=== PATIENT | male | born 1985 | race Caucasian/White ===

== ENCOUNTER 2022-01-27 15:01 | Emergency (ER) | payer OTHER ==
[~2022-01-27] VITALS: Ht 167.6 cm; Wt 77.1 kg
--- NOTE | 2022-01-27 15:45 | NUR ---
bib self c/o epigastric area pain x 5 days. denies any recent etoh intake. AMBULATORY, PLACED ON BED, AAOX4, BREATHING EVEN AND UNLABORED, SATURATING AT 98%RA
--- NOTE | 2022-01-27 16:00 | NUR ---
BLOOD DRAWN AND SENT TO LAB
[2022-01-27] MEDS ORDERED: DIATR MEGLU/DIATRIZOATE SODIUM 30 ML BOTTLE (GASTROGRAPHIN) ONE (16:25)
[2022-01-27] MEDS ORDERED: IV NS 0.9% 250 ML IV ONE (16:25)
[2022-01-27] MEDS ORDERED: CT SWABBABLE VALVE TRANS SET 1 EA INFUS.SET MC ONE (16:25)
[2022-01-27] MEDS ORDERED: IOHEXOL-300 100 ML VIAL IV ONE (16:25)
[2022-01-27] MEDS ORDERED: LORAZEPAM INJ 2 MG/ML VIAL IV ONE (16:30)
[2022-01-27] MEDS ORDERED: PANTOPRAZOLE 40 MG VIAL IV ONE (16:30)
[2022-01-27] MEDS ORDERED: ONDANSETRON HCL/PF 4 MG/2 ML VIAL IVP ONE (16:30)
[2022-01-27] MEDS ORDERED: IV NS 0.9% 1,000 ML BAG IV ONE (16:30)
[2022-01-27] MEDS ORDERED: PIPERACILLIN /TAZOBACTAM 3.375 G in IV D5W 50 ML IV ONE (16:30)
--- NOTE | 2022-01-27 16:30 | NUR ---
PATIENT TAKEN TO CT VIA [facility]
[2022-01-27 16:37] LABS: BASOPHILS % (AUTO) 0.2 % (0.0-2.0); EOSINOPHILS % (AUTO) 0.2 % (0.0-6.0); HEMATOCRIT 38 % (39-51); HEMOGLOBIN 12.9 g/dL (13.5-17.5); LYMPHOCYTES # (AUTO) 0.7 K/uL (0.8-4.8); LYMPHOCYTES % (AUTO) 7.5 % (20.0-44.0); MEAN CORPUSCULAR HGB CONC 34 g/dl (31.0-36.0); MEAN CORPUSCULAR VOLUME 103 fL (80-96); MONOCYTES # (AUTO) 1.4 K/uL (0.1-1.30); MONOCYTES % (AUTO) 13.7 % (2.0-12.0); NEUTROPHILS # (AUTO) 7.8 K/uL (1.8-8.9); NEUTROPHILS % (AUTO) 78.4 % (43.0-81.0); PLATELET COUNT (AUTO) 93 K/uL (150-450); RED BLOOD CELL COUNT(AUTO) 3.68 MIL/uL (4.5-6.0)
[2022-01-27] MEDS ORDERED: ONDANSETRON HCL/PF 4 MG/2 ML VIAL ONE (16:43)
[2022-01-27] MEDS ORDERED: PANTOPRAZOLE 40 MG VIAL ONE (16:43)
[2022-01-27] MEDS ORDERED: LORAZEPAM INJ 2 MG/ML VIAL ONE (16:44)
[2022-01-27 17:29] LABS: ALBUMIN 4.1 g/dL (3.4-5.0); BILIRUBIN,DIRECT 0.6 mg/dL (0.0-0.2); BILIRUBIN,TOTAL 2.1 mg/dL (0.2-1.0); CALCIUM, SERUM 9.6 mg/dL (8.5-10.1); CREATININE 1.2 mg/dL (0.6-1.3); POTASSIUM 3.5 mmol/L (3.5-5.1); TOTAL PROTEIN, SERUM 8.1 g/dL (6.4-8.2)
--- NOTE | 2022-01-27 18:07 | NUR ---
SWAB FOR COVID19 SENT TO LAB
--- NOTE | 2022-01-27 18:53 | NUR ---
CALLED [facility] [phone] PER TERA CO-ORDINATOR 16 AT [facility] NOT ACCEPTING HIGHER LEVEL OF CARE TRANSFERS AT THIS TIME.
--- NOTE | 2022-01-27 18:56 | NUR ---
[facility] [phone] THAD. NEED TO DO PEER TO PEER WILL HAVE TO CALL [facility]
--- NOTE | 2022-01-27 18:59 | NUR ---
[facility] [phone] AT [facility] WITH BED AT THIS TIME.
--- NOTE | 2022-01-27 19:02 | NUR ---
[facility] [phone] AT [facility] WILL TAKE INFO
--- NOTE | 2022-01-27 21:33 | NUR ---
CALL FROM [facility] INTERNAL RECRUITER, [facility] UNABLE TO ACCEPT PT.
--- NOTE | 2022-01-27 21:47 | NUR ---
[facility] TRANSFER CENTER CALLED FOR HIGHER LEVEL OF CARE. [facility] FAXED.
--- NOTE | 2022-01-28 01:06 | NUR ---
CLINICALS REFAXED TO [facility]
[2022-01-28] MEDS ORDERED: LORAZEPAM INJ 2 MG/ML VIAL ONE ×2 (01:28→10:05)
[2022-01-28] MEDS ORDERED: IV NS 0.9% 1,000 ML BAG IV ONE (04:30)
--- NOTE | 2022-01-28 08:20 | NUR ---
[facility] TRANSF[facility]: CLINICALS UNDER REVIEW, REQUESTED PCR COVID TEST.
--- NOTE | 2022-01-28 08:32 | NUR ---
COVID PCR SWAB DONE AND SENT TO LAB
--- NOTE | 2022-01-28 08:36 | NUR ---
PATIENT RESTING IN BED, AAOX4, BREATHING EVEN AND NON LABORED
[2022-01-28] MEDS ORDERED: LORAZEPAM INJ 2 MG/ML VIAL IV ONE ×2 (10:00)
--- NOTE | 2022-01-28 10:28 | NUR ---
PRESENTED CASE TO [facility] FOR HIGHER LEVEL OF CARE TRANSFER REQUIRING CT SURGERY. WILL CALL BACK. REQUESTED CT BE FAXED TO [phone]
--- NOTE | 2022-01-28 10:44 | NUR ---
[facility] CALLED, THEY ARE AT [facility]. UNABLE TO ACCEPT THE PATIENT FOR TRANSFER.
--- NOTE | 2022-01-28 13:00 | NUR ---
CALL FROM DR MIGUEL MADDEN,THORACIC SURGEON AT [facility], , DR DOMÍNGUEZ AWARE BUT UNABLE TO COME TO THE PHONE.
--- NOTE | 2022-01-28 13:24 | NUR ---
Patient does not wish to proceed with medical care recommended by Dr. Augustine. Patient given information related to possible complications, up to and including , which could occur as a result of leaving the hospital at this time. Patient verbalizes understanding of risks involved due to leaving against medical advice. Patient has signed AMA form.
[2022-01-28 13:25] VITALS: BP 146/78
== END 2022-01-28 13:25 | disposition left against medical advice (07) ==
LOC: ER 15:03
DX: K22.3 Perforation of esophagus (principal); F10.239 Alcohol dependence with withdrawal, unspecified; Z20.822 Contact with and (suspected) exposure to COVID-19; Z53.29 Procedure and treatment not carried out because of patient's decision for other reasons; J98.2 Interstitial emphysema; R91.8 Other nonspecific abnormal finding of lung field; K76.0 Fatty (change of) liver, not elsewhere classified
CPT/HCPCS: 99285; 71260; 96365; 96375; 87426; 93005; 74176; 85025; 80048; 87040 ×2; 83605; 83690; 80076; 36415; 85730; 96361; 96376; J2060 ×3; J2405; J2543; J7060; J7030 ×2; J7050; J7040; C9113; Q9963; C9803; Q9967; U0003

== ENCOUNTER 2024-04-06 13:30 | Emergency (ER) | payer OTHER ==
[~2024-04-06] VITALS: Ht 165.1 cm; Wt 78.0 kg
[2024-04-06] MEDS ORDERED: LORAZEPAM INJ 2 MG/ML VIAL ONE (14:14)
[2024-04-06] MEDS ORDERED: ONDANSETRON HCL/PF 4 MG/2 ML VIAL ONE (14:14)
[2024-04-06] MEDS: LORAZEPAM INJ 2 MG/ML VIAL IV ONE (14:30)
[2024-04-06] MEDS: IV NS 0.9% 1,000 ML BAG IV ONE (14:30)
[2024-04-06] MEDS: ONDANSETRON HCL/PF 4 MG/2 ML VIAL IVP ONE (14:30)
[2024-04-06 14:34] LABS: CALCIUM, SERUM 9.7 mg/dL (8.5-10.1); CARBON DIOXIDE 27 mmol/L (21-32); CHLORIDE 87 mmol/L (98-107); CREATININE 1.3 mg/dL (0.6-1.3); GLUCOSE 113 mg/dL (74-106); POTASSIUM 3.8 mmol/L (3.5-5.1); SODIUM SERUM 134 mmol/L (136-145); UREA NITROGEN, BLOOD 16 mg/dL (7-18)
[2024-04-06 14:35] LABS: SERUM AMMONIA 24 umol/L (11-32)
[2024-04-06 14:40] LABS: ALANINE AMINOTRANSFERASE 75 U/L (12-78); ALBUMIN 4.8 g/dL (3.4-5.0); ALCOHOL, BLOOD < 3 mg/dL (0-10); ALKALINE PHOSPHATASE 81 U/L (46-116); ASPARTATE AMINOTRANSFERASE 94 U/L (15-37); BILIRUBIN,DIRECT 1.3 mg/dL (0.0-0.2); BILIRUBIN,TOTAL 4.7 mg/dL (0.2-1.0); TOTAL PROTEIN, SERUM 8.8 g/dL (6.4-8.2)
[2024-04-06 14:45] LABS: INR 1.25 (0.91-1.10); PARTIAL THROMBOPLASTIN TIME 25.5 SEC (24.3-34.3); PROTHROMBIN TIME 13.1 SECS (9.2-11.1)
[2024-04-06 15:05] LABS: BASOPHILS % (AUTO) 0.2 % (0.0-2.0); HEMATOCRIT 41 % (39-51); HEMOGLOBIN 14.4 g/dL (13.5-17.5); LYMPHOCYTES # (AUTO) 0.3 K/uL (0.8-4.8); LYMPHOCYTES % (AUTO) 4.9 % (20.0-44.0); MEAN CORPUSCULAR HEMOGLOBIN 36 PG (26.0-33.0); MEAN CORPUSCULAR HGB CONC 35 g/dl (31.0-36.0); MEAN CORPUSCULAR VOLUME 103 fL (80-96); MONOCYTES # (AUTO) 0.8 K/uL (0.1-1.30); MONOCYTES % (AUTO) 10.8 % (2.0-12.0); NEUTROPHILS % (AUTO) 84.1 % (43.0-81.0); RED BLOOD CELL COUNT(AUTO) 3.97 MIL/uL (4.5-6.0); RED CELL DISTRIBUTION WIDTH 13.8 % (11.5-15.0); WHITE BLOOD COUNT (AUTO) 7.1 K/uL (4.3-11.0)
[2024-04-06] MEDS ORDERED: CHLO25CA22 PO (15:11)
[2024-04-06 15:24] LABS: PLATELET COUNT (AUTO) 35 K/uL (150-450)
[2024-04-06 16:19] VITALS: BP 136/76; TEMP 98.3; O2SAT 97
[2024-04-06 16:25] LABS: LYMPHOCYTES % (MANUAL) 5 % (16-48); NEUTROPHILS % (MANUAL) 85 (42-76)
[2024-04-06 16:26] LABS: MONOCYTES % (MANUAL) 10 % (0-11.0); PLATELET ESTIMATE DECREASED
== END 2024-04-06 16:19 | disposition home or self-care (01) ==
LOC: ER 13:36
DX: S09.8XXA Other specified injuries of head, initial encounter (principal); F10.239 Alcohol dependence with withdrawal, unspecified; K70.9 Alcoholic liver disease, unspecified; E87.1 Hypo-osmolality and hyponatremia; R25.1 Tremor, unspecified; R41.82 Altered mental status, unspecified; W01.0XXA Fall on same level from slipping, tripping and stumbling without subsequent striking against object, initial encounter; Y93.89 Activity, other specified; Y92.89 Other specified places as the place of occurrence of the external cause; Y99.8 Other external cause status
CPT/HCPCS: 99285; 96374; 96361; 96375; 93005; 70450; 82140; 85025; 80048; 80076; 85007; 36415; 85730; 80320; J2060; J2405; J7030; G0480

== ENCOUNTER 2024-04-26 13:27 | Emergency (ER) | payer OTHER ==
[~2024-04-26] VITALS: Ht 165.1 cm; Wt 77.1 kg
[~2024-04-26 13:27] MED LIST: CHLO25CA22 PO
[2024-04-26] MEDS ORDERED: ONDANSETRON HCL/PF 4 MG/2 ML VIAL ONE (14:09)
[2024-04-26] MEDS ORDERED: predniSONE 20 MG TABLET ONE (14:09)
[2024-04-26] MEDS: predniSONE 20 MG TABLET PO ONE (14:22)
[2024-04-26] MEDS: IV NS 0.9% 1,000 ML BAG IV ONE (14:22)
[2024-04-26] MEDS: ONDANSETRON HCL/PF 4 MG/2 ML VIAL IVP ONE (14:22)
[2024-04-26] MEDS: IPRATROPIUM NEB FS 0.5 MG/2.5 ML AMPUL.NEB NEB ONE (14:45)
[2024-04-26] MEDS: ALBUTEROL FS 2.5 MG/3 ML VIAL.NEB NEB ONE (14:45)
[2024-04-26] MEDS ORDERED: ALBUTEROL FS 2.5 MG/3 ML VIAL.NEB ONE (14:46)
[2024-04-26] MEDS ORDERED: IPRATROPIUM NEB FS 0.5 MG/2.5 ML AMPUL.NEB ONE (14:47)
[2024-04-26 14:50] VITALS: O2SAT 98
[2024-04-26 15:00] VITALS: O2SAT 100
[2024-04-26 15:11] LABS: BASOPHILS % (AUTO) 0.1 % (0.0-2.0); EOSINOPHILS % (AUTO) 0.1 % (0.0-6.0); HEMATOCRIT 44 % (39-51); HEMOGLOBIN 15.7 g/dL (13.5-17.5); LYMPHOCYTES # (AUTO) 0.8 K/uL (0.8-4.8); LYMPHOCYTES % (AUTO) 16.1 % (20.0-44.0); MEAN CORPUSCULAR HEMOGLOBIN 36 PG (26.0-33.0); MEAN CORPUSCULAR HGB CONC 35 g/dl (31.0-36.0); MEAN CORPUSCULAR VOLUME 101 fL (80-96); MONOCYTES # (AUTO) 0.9 K/uL (0.1-1.30); MONOCYTES % (AUTO) 16.5 % (2.0-12.0); NEUTROPHILS # (AUTO) 3.5 K/uL (1.8-8.9); NEUTROPHILS % (AUTO) 67.2 % (43.0-81.0); RED CELL DISTRIBUTION WIDTH 13.6 % (11.5-15.0); WHITE BLOOD COUNT (AUTO) 5.2 K/uL (4.3-11.0)
[2024-04-26 15:13] LABS: PLATELET COUNT (AUTO) 48 K/uL (150-450)
[2024-04-26] MEDS ORDERED: PRED50TA PO (15:13)
[2024-04-26] MEDS ORDERED: ALBU18HF2 INH (15:13)
[2024-04-26] MEDS ORDERED: ONDA4TAB5 PO (15:13)
[2024-04-26 15:29] LABS: CALCIUM, SERUM 10.8 mg/dL (8.5-10.1); CREATININE 1.5 mg/dL (0.6-1.3); POTASSIUM 3.5 mmol/L (3.5-5.1)
[2024-04-26 16:14] LABS: BASOPHILS % (MANUAL) 0 % (0.0-2.0); EOSINOPHILS % (MANUAL) 0 % (0-4); LYMPHOCYTES % (MANUAL) 19 % (16-48); MONOCYTES % (MANUAL) 13 % (0-11.0); NEUTROPHILS % (MANUAL) 68 (42-76); PLATELET ESTIMATE DECREASED
[2024-04-26 16:47] VITALS: BP 125/70; TEMP 98.3; O2SAT 99
== END 2024-04-26 16:49 | disposition home or self-care (01) ==
LOC: ER 13:34
DX: R05.9 Cough, unspecified (principal); R11.2 Nausea with vomiting, unspecified; R06.2 Wheezing; Z79.52 Long term (current) use of systemic steroids
CPT/HCPCS: 99284; 96374; 71045; 96361; 85025; 80048; 36415; 94640; 85007; J7512; J2405; J7030

== ENCOUNTER 2024-09-04 12:53 | Inpatient (IN) | payer OTHER ==
[~2024-09-04] VITALS: Ht 198.1 cm; Wt 75.9 kg
[~2024-09-04 12:53] MED LIST changes: +ALBU18HF2 INH; +ONDA4TAB5 PO; +PRED50TA PO
[2024-09-04 14:54] LABS: BASOPHILS % (AUTO) 0.4 % (0.0-2.0); EOSINOPHILS % (AUTO) 0.2 % (0.0-6.0); HEMATOCRIT 39 % (39-51); HEMOGLOBIN 14.2 g/dL (13.5-17.5); LYMPHOCYTES # (AUTO) 0.8 K/uL (0.8-4.8); MEAN CORPUSCULAR HEMOGLOBIN 37 PG (26.0-33.0); MEAN CORPUSCULAR HGB CONC 36 g/dl (31.0-36.0); MEAN CORPUSCULAR VOLUME 103 fL (80-96); MONOCYTES # (AUTO) 1.4 K/uL (0.1-1.30); MONOCYTES % (AUTO) 17.1 % (2.0-12.0); NEUTROPHILS # (AUTO) 5.8 K/uL (1.8-8.9); NEUTROPHILS % (AUTO) 72.3 % (43.0-81.0); RED BLOOD CELL COUNT(AUTO) 3.83 MIL/uL (4.5-6.0); RED CELL DISTRIBUTION WIDTH 14.1 % (11.5-15.0)
[2024-09-04 15:00] LABS: PLATELET COUNT (AUTO) 28 K/uL (150-450)
[2024-09-04] MEDS ORDERED: HALOPERIDOL LACTATE INJ 5 MG/ML VIAL ONE (15:08)
[2024-09-04 15:10] LABS: CALCIUM, SERUM 10.4 mg/dL (8.5-10.1); CREATININE 1.2 mg/dL (0.6-1.3); POTASSIUM 2.9 mmol/L (3.5-5.1)
[2024-09-04 15:18] LABS: ALBUMIN 4.7 g/dL (3.4-5.0); BILIRUBIN,DIRECT 1.1 mg/dL (0.0-0.2); BILIRUBIN,TOTAL 3.1 mg/dL (0.2-1.0); EOSINOPHILS % (MANUAL) 1 % (0-4); LYMPHOCYTES % (MANUAL) 13 % (16-48); MONOCYTES % (MANUAL) 11 % (0-11.0); NEUTROPHILS % (MANUAL) 75 (42-76); PLATELET ESTIMATE DECREASED; TOTAL PROTEIN, SERUM 8.5 g/dL (6.4-8.2)
[2024-09-04 15:20] LABS: STOMATOCYTES 2+
[2024-09-04] MEDS: HALOPERIDOL LACTATE INJ 5 MG/ML VIAL IV ONE (15:21)
[2024-09-04] MEDS: IV NS 0.9% 1,000 ML BAG IV ONE (15:22)
[2024-09-04] MEDS ORDERED: LORAZEPAM INJ 2 MG/ML VIAL ONE ×2 (15:31→17:09)
[2024-09-04] MEDS: LORAZEPAM INJ 2 MG/ML VIAL IV ONE ×3 (15:36→17:21)
[2024-09-04] MEDS: LORAZEPAM 4 MG/ML VIAL IV ONE (15:37)
[2024-09-04] MEDS: ONDANSETRON HCL/PF 4 MG/2 ML VIAL IV ONE (15:41)
[2024-09-04] MEDS: POTASSIUM CL. PREMIX PERIPHER. 50 ML IV SCH (16:13)
[2024-09-04 16:28] LABS: ACETAMINOPHEN 0 ug/ml (10-30); SALICYLATE < 0.2 mg/dL (2.8-20.0)
[2024-09-04 16:29] LABS: ALCOHOL, BLOOD < 3 mg/dL (0-10)
[2024-09-04 17:46] LABS: AMPHETAMINE, URINE NEGATIVE (NEGATIVE); BARBITURATE, URINE NEGATIVE (NEGATIVE); BENZODIAZEPINE, URINE NEGATIVE (NEGATIVE); CANNABINOID, URINE POSITIVE (NEGATIVE); COCCAINE, URINE NEGATIVE (NEGATIVE); OPIATE, URINE NEGATIVE (NEGATIVE); PHENCYCLIDINE SCREEN,URINE NEGATIVE (NEGATIVE)
[2024-09-04] MEDS ORDERED: POTASSIUM CL. PREMIX PERIPHER. 50 ML ONE ×2 (18:39→19:38)
[2024-09-04] MEDS ORDERED: ONDANSETRON HCL/PF 4 MG/2 ML VIAL IVP PRN (21:30)
[2024-09-04] MEDS ORDERED: MAG HYDROX/AL HYDROX/SIMETH 30 ML UDC PO PRN (21:30)
[2024-09-04] MEDS ORDERED: IV NS 0.9% 1,000 ML IV PRN (21:30)
[2024-09-04] MEDS ORDERED: LORAZEPAM INJ 2 MG/ML VIAL IV PRN (21:30)
[2024-09-04] MEDS ORDERED: MAGNESIUM HYDROXIDE 30 ML UDC PO PRN (21:30)
[2024-09-04] MEDS ORDERED: ACETAMINOPHEN 325 MG TABLET PO PRN (21:30)
[2024-09-04] MEDS ORDERED: Z GUARD REMEDY 4 OZ OINT TP PRN (21:30)
[2024-09-04] MEDS ORDERED: Thiamine 100 MG/ML VIAL ONE (23:00)
[2024-09-04] MEDS: Thiamine 100 MG in IV D5W 50 ML IV SCH (23:13)
[2024-09-04] MEDS: LIDOCAINE VISCOUS 2% UD 15 ML UDC MM ONE (23:14)
[2024-09-05] VITALS: BP 138/95; TEMP 99.1; O2SAT 100
[2024-09-05 04:00] VITALS: BP 134/98; TEMP 97.5; O2SAT 99
[2024-09-05] MEDS: METOCLOPRAMIDE HCL 10 MG/2 ML VIAL IV SCH (04:26)
[2024-09-05 08:00] VITALS: BP 143/97; TEMP 98.6; O2SAT 98
[2024-09-05 08:05] LABS: ALBUMIN 4.2 g/dL (3.4-5.0); BILIRUBIN,TOTAL 3.1 mg/dL (0.2-1.0); CALCIUM, SERUM 9.4 mg/dL (8.5-10.1); CREATININE 0.9 mg/dL (0.6-1.3); MAGNESIUM 1.7 mg/dL (1.8-2.4); PHOSPHORUS 2.5 mg/dL (2.5-4.9); POTASSIUM 2.9 mmol/L (3.5-5.1)
[2024-09-05] MEDS: PANTOPRAZOLE 40 MG VIAL IV SCH (08:31)
[2024-09-05] MEDS: CHLORDIAZEPOXIDE HCL 25 MG CAPSULE PO SCH (08:31)
[2024-09-05 08:42] LABS: BASOPHILS % (AUTO) 0.1 % (0.0-2.0); HEMATOCRIT 42 % (39-51); HEMOGLOBIN 14.9 g/dL (13.5-17.5); LYMPHOCYTES # (AUTO) 0.9 K/uL (0.8-4.8); LYMPHOCYTES % (AUTO) 8.6 % (20.0-44.0); MEAN CORPUSCULAR HEMOGLOBIN 38 PG (26.0-33.0); MEAN CORPUSCULAR HGB CONC 36 g/dl (31.0-36.0); MEAN CORPUSCULAR VOLUME 106 fL (80-96); MONOCYTES # (AUTO) 1.7 K/uL (0.1-1.30); MONOCYTES % (AUTO) 16.5 % (2.0-12.0); NEUTROPHILS # (AUTO) 7.9 K/uL (1.8-8.9); NEUTROPHILS % (AUTO) 74.8 % (43.0-81.0); RED BLOOD CELL COUNT(AUTO) 3.96 MIL/uL (4.5-6.0); RED CELL DISTRIBUTION WIDTH 14.7 % (11.5-15.0); WHITE BLOOD COUNT (AUTO) 10.6 K/uL (4.3-11.0)
[2024-09-05 08:52] LABS: PLATELET COUNT (AUTO) 24 K/uL (150-450)
[2024-09-05] MEDS: MAGNESIUM OXIDE 400 MG TABLET PO ONE (09:16)
[2024-09-05] MEDS: POTASSIUM CHLORIDE 20 MEQ TAB.PRT.SR PO SCH (10:06)
[2024-09-05] MEDS ORDERED: LEVETIRACETAM (500MG) 500 MG in IV NS 0.9% 100 ML IV SCH (10:30)
[2024-09-05] MEDS: LEVETIRACETAM (500MG) 1,000 MG in IV NS 0.9% 90 ML IV ONE (10:58)
[2024-09-05] MEDS: Folic acid 1 MG in IV D5W 50 ML IV SCH (11:28)
[2024-09-05 12:00] VITALS: BP 139/96; TEMP 98.8; O2SAT 98
[2024-09-05 13:51] LABS: THYROID STIMULATING HORMONE 1.73 uIU/mL (0.358-3.74)
[2024-09-05 16:00] VITALS: BP 139/87; TEMP 98.8; O2SAT 98
[2024-09-05] MEDS: IV NS 0.9% 1,000 ML IV PRN (17:39)
[2024-09-05 20:00] VITALS: BP 139/92; TEMP 99; O2SAT 100
[2024-09-05 20:11] LABS: LYMPHOCYTES % (MANUAL) 13 % (16-48); MONOCYTES % (MANUAL) 13 % (0-11.0); NEUTROPHILS % (MANUAL) 74 (42-76); PLATELET ESTIMATE DECREASED
[2024-09-05 20:12] LABS: STOMATOCYTES 1+
[2024-09-05] MEDS: LEVETIRACETAM (500MG) 500 MG in IV NS 0.9% 100 ML IV SCH (21:57)
[2024-09-06] VITALS: BP 132/96; TEMP 98.8; O2SAT 100
[2024-09-06 04:00] VITALS: BP 141/98; TEMP 98.6; O2SAT 99
[2024-09-06 08:00] VITALS: BP 141/98; TEMP 98.6; O2SAT 99
[2024-09-06 11:49] LABS: CALCIUM, SERUM 9.3 mg/dL (8.5-10.1); POTASSIUM 3.3 mmol/L (3.5-5.1)
[2024-09-06 12:00] VITALS: BP 142/90; TEMP 98.5; O2SAT 99
[2024-09-06 16:00] VITALS: BP 140/90; TEMP 98.4; O2SAT 100
[2024-09-06 20:00] VITALS: BP 144/95; TEMP 97.7; O2SAT 99
[2024-09-06] MEDS ORDERED: LEVETIRACETAM (500MG) 500 MG/5 ML VIAL IV ONE (21:47)
[2024-09-07] VITALS: BP 135/102; TEMP 97.9; O2SAT 100
[2024-09-07 06:10] LABS: FOLIC ACID 9.9 ng/mL (>3.0)
[2024-09-11 10:08] LABS: VITAMIN B1 THIAMINE,WB 124.8 nmol/L (66.5-200.0)
== END 2024-09-07 03:16 | disposition left against medical advice (07) | DRG 53 ==
LOC: ER 12:53 → TELE1 20:55
PROVIDERS: ADMIT Nurse Practitioner Acute Care; ATTEND Internal Medicine
DX: R56.9 Unspecified convulsions (principal); G92.8 Other toxic encephalopathy; E87.1 Hypo-osmolality and hyponatremia; K74.60 Unspecified cirrhosis of liver; K76.9 Liver disease, unspecified; F41.9 Anxiety disorder, unspecified; F17.200 Nicotine dependence, unspecified, uncomplicated; Y90.0 Blood alcohol level of less than 20 mg/100 ml; F10.139 Alcohol abuse with withdrawal, unspecified; R74.01 Elevation of levels of liver transaminase levels; F12.90 Cannabis use, unspecified, uncomplicated; E87.6 Hypokalemia; Z87.19 Personal history of other diseases of the digestive system; Z53.29 Procedure and treatment not carried out because of patient's decision for other reasons; K76.0 Fatty (change of) liver, not elsewhere classified
CPT/HCPCS: 36415; 70450-TC; 76700-TC; 80048-TC; 80053-TC; 80076-TC; 82607-TC; 83690-TC; 83735-TC; 83921; 84100-TC; 84425; 84443-TC; 85025-TC; 87081-TC; A4223; G0378; G0480; J1630; J1953; J2060; J2405; J2470; J2765; J3411; J3480; J3490; J7030; J7060